=== PATIENT | male | born 1950 | race Caucasian/White ===

== ENCOUNTER 2016-09-02 06:44 | Day surgery (SDC) | payer MEDICARE, BC ==
[2016-09-02] MEDS ORDERED: Lactated Ringers 1,000 ML IV SCH (07:30)
[2016-09-02] MEDS ORDERED: Simethicone Drops 40 MG/0.6 ML 30 ML Bottle ONE ×2 (07:31→08:00)
[2016-09-02] MEDS ORDERED: ceFAZolin 1 GM in Premix Bag 1 BAG IV ONE (07:55)
--- NOTE | 2016-09-02 09:25 | PCM.SN ---
- Free Text/Narrative Note: Preop. Late entry 0750 Meds and allergies reviewed w chart review. No complications w previous anesthetics. NPO > 8 hrs. Mallampati 2. Non smoker, neg GERD, Hx elevated cholesterol. EKG NSR. Lungs CTAB, heart RRR. Risks benefits and alternatives of anesthesia explained to Pt. Pt denies questions or concerns. Plan MAC
[2016-09-02] MEDS ORDERED: Propofol 200 MG/20 ML SDV IV ONE (10:21)
[2016-09-02] MEDS ORDERED: Midazolam 1 MG/ML 2 ML SDV IV ONE (10:21)
[2016-09-02] MEDS ORDERED: fentaNYL 100 MCG/2 ML SDV IV ONE (10:21)
--- NOTE | 2016-09-02 12:11 | HP ---
CHIEF COMPLAINT: Screening colonoscopy. HISTORY OF PRESENT ILLNESS: Mr. Jerrod Piedra is a known patient to me that I have had the pleasure of excising several lesions. It came to our attention that it has become more than 10 years since he has had his last colonoscopy that one was normal. He states that in this time that he has had no history of change in his bowel habits, no bloody stools and no narrowing of the stools. He does not have a family history of cancer other than prostate cancer in his brothers. PAST MEDICAL HISTORY: ALLERGIES: None. MEDICATIONS: Have not changed from when I saw him a month and a half ago. SOCIAL HISTORY: He still does not smoke, and he only has socially use of alcohol. He has 3 boys alive and well. REVIEW OF SYSTEMS: He denies any history of seizures. No thyroid, diabetes, or hepatitis. He has had no chronic cough or shortness of breath or flu-like symptoms. No history of cardiac arrhythmia or chest pain. No abdominal pain or change in his bowel habits. PAST SURGICAL HISTORY: Significant that he has had a total joint done in May as well as one of 6 months earlier. PHYSICAL EXAMINATION: General: GCS is 15. HEENT: Pupils are equal. Neck: Without mass. Lungs: Clear. Heart: Rhythm is regular. Abdomen: Soft. Extremities: On his right lateral thigh where I did the excision of a lesion that is well healed. Ankles are free of edema. The incisions are healed well on his knees. IMPRESSION AND PLAN: 1. Certainly, he is a candidate for screening colonoscopy. I clearly discussed the risks of surgery to include, but not limited to, bleeding, infection, heart attack, , injury to structures not intended specifically driving the camera through the bowel. He understands these risks and wishes to proceed. We also explained what a complete colonoscopy would be, may need to get into all the way to the right side. If we cannot get that then we would probably go on to a barium enema. If we find a polyp that we can remove, we will do that. If not, we will just biopsy. Due to the fact that he said his knees, prophylactic antibiotics will be initiated. 2. History of hypercholesteremia. 3. Strong history of prostate cancer. 4. 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 I did discuss this with the patient to inform him of the final path report. DRE: 09/02/2016 07:53:54 [facility] /[id number]
--- NOTE | 2016-09-02 12:17 | PCM.SN ---
- Free Text/Narrative Note: Post op. Pt discharged home after discharge criteria met. No anesthesia concerns noted.
--- NOTE | 2016-09-02 13:45 | OR ---
DATE: 09/02/2016 PREOPERATIVE DIAGNOSIS: Screening colonoscopy. POSTOPERATIVE DIAGNOSIS: Screening colonoscopy with findings of 5 polyps. PROCEDURE: Colonoscopy with polypectomies-cold removal. ANESTHESIA: IV sedation. ESTIMATED BLOOD LOSS: Minimal. BRIEF HISTORY: Jerrod Piedra is a 66-year-old male, who has had a colonoscopy greater than 10 years ago. He is now at the point for having a repeat. I had the opportunity to discuss the risks and benefits. He had a knee place probably 4 months ago, so we did give of prophylactic antibiotics. DESCRIPTION OF PROCEDURE: He was taken to the endoscopy suite, time-out was performed. At this point, he was placed on his left side down with a pillow between his knees. IV sedation was begun. On perianal exam, there was no lesions, excoriations, or signs of any trauma. I was able to then do a digital exam and everything felt fine and there was no mass. I then was able to advance the scope and fairly carefully get to the ileocecal valve. I confirmed by seeing the appendiceal orifice and all of the whole, there were 2 polyps within the cecum itself, both of these were small less than 0.5 cm, and I simply use the biopsy forceps to do a polypectomy. These were put in a separate container. I was then able to continue up and then there was a second small polyp at the hepatic flexure, and near the transverse colon. Again, I used the cold biopsy forceps to perform the polypectomy. He had several diverticula and interesting enough there were two additional polyps, there is one in the sigmoid colon that was again maybe half a cm, which I removed, but again there was one in the sigmoid and it was a little bit more broad-based, and I was able to I believe remove the majority of it. Again, I did use the snare polypectomy on one of them and with the cold trap to also assist in attaining the specimen. None of these had any ulcerations, again, there were small. I was able to retroflex the scope in the rectum and there was no signs of internal hernias or mass. The scope was removed. The patient tolerated the procedure well and the plan will be that we will probably have to do a repeat colonoscopy here sooner versus later. [facility] /[id number]
--- NOTE | 2016-09-02 15:21 | EKG ---
09/02/2016 - BENJAMIN POMPA - EKG done on a 66-year-old male, showing sinus rhythm with heart rate of 60 beats per minute. Normal axis. No acute ST-T wave changes. [facility] /[id number]
[2016-10-03 12:31] VITALS: BP 128/78
== END 2016-09-02 11:00 | disposition home or self-care (01) ==
LOC: DL.ENDO 06:44
PROVIDERS: ATTEND Surgery
DX: Z12.11 Encounter for screening for malignant neoplasm of colon (principal); D12.0 Benign neoplasm of cecum; K63.5 Polyp of colon; K57.30 Diverticulosis of large intestine without perforation or abscess without bleeding; E78.00 Pure hypercholesterolemia, unspecified; Z98.890 Other specified postprocedural states
CPT/HCPCS: 00902; 45380; 45385; 88305; 93005; 93010; J0690; J2250; J2704; J3010; J7120